=== PATIENT | female | born 1965 | race African-American/Black ===

== ENCOUNTER 2022-01-09 07:04 | Emergency (ER) | payer OTHER ==
[~2022-01-09] VITALS: Ht 160 cm; Wt 108.9 kg
== END 2022-01-09 07:50 | disposition home or self-care (01) ==
LOC: ER 07:08
DX: Z47.89 Encounter for other orthopedic aftercare (principal); R20.2 Paresthesia of skin; M54.9 Dorsalgia, unspecified; G89.29 Other chronic pain; Z98.84 Bariatric surgery status
CPT/HCPCS: 99282